=== PATIENT | female | born 1960 | race Caucasian/White ===

== ENCOUNTER → 2017-03-24 | Outpatient (CLI) | payer OTHER ==
[~2017-03-24] MED LIST: CHOL10002 PO; Cipro500 MG PO; Coumadin5 MG PO; DOXY100T53 PO; Estrace Vagin42.5 GM VAG; FLUO10 PO; GABA300 PO; LOPE2C PO; LORA1 PO; Lovenox80 MG/0.8 SC; OXYC10ER PO; OXYC10TA19 PO; OXYC5; OXYC5 PO; TAGRISSO40 MG PO; TARCEVA PO; TRAZ100 PO; XARELTO20 MG PO
[2017-03-24 12:53] LABS: Bilirubin, Urine Neg (Neg); Blood, Urine 1+ (Neg); Glucose Qualitative, Urine Neg (Neg); Ketones, Urine Neg (Neg); Leukocyte Esterase, Urine Neg (Neg); Nitrite, Urine Neg (Neg); Protein, Urine Neg (Neg); Specific Gravity, Urine 1.025 (1.003-1.022); Urobilinogen, Urine NORM (Normal)
[2017-03-24 13:13] LABS: Appearance, Urine Clear (Clear); Color, Urine Yellow (P-Yellow)
[2017-03-24 13:14] LABS: Bacteria Not Seen /hpf; Red Blood Cells, Urine 0-2 /hpf (0-2); Squamous Epithelial Cells Not Seen /hpf (Few); White Blood Cells, Urine Not Seen /hpf (0-5)
== END ==
LOC: LAB 12:39
PROVIDERS: Internal Medicine
DX: R30.0 Dysuria (principal)
CPT/HCPCS: 81001

== ENCOUNTER 2017-07-22 07:11 | Day surgery (SDC) | payer OTHER ==
[~2017-07-22 07:11] MED LIST changes: -CHOL10002 PO; -DOXY100T53 PO; -Estrace Vagin42.5 GM VAG; -FLUO10 PO; -LOPE2C PO; -OXYC10ER PO; -OXYC10TA19 PO
[2017-07-22] MEDS ORDERED: OXYC10ER PO (10:57)
[2017-07-22] MEDS ORDERED: OXYC10TA19 PO (10:59)
[2017-07-22] MEDS ORDERED: LORA1 PO ×2 (11:00→11:03)
[2017-07-22] MEDS ORDERED: GABA300 PO (11:00)
[2017-07-22] MEDS ORDERED: Estrace Vagin42.5 GM VAG (11:05)
[2017-07-22] MEDS ORDERED: LOPE2C PO (11:07)
[2017-07-22] MEDS ORDERED: FLUO10 PO (11:08)
[2017-07-22] MEDS ORDERED: DOXY100T53 PO (11:09)
[2017-07-22] MEDS ORDERED: CHOL10002 PO (11:10)
== END 2017-07-22 10:30 | disposition home or self-care (01) ==
LOC: ATC 07:11
DX: R39.14 Feeling of incomplete bladder emptying (principal); C79.51 Secondary malignant neoplasm of bone; F41.9 Anxiety disorder, unspecified